=== PATIENT | male | born 1980 | race Caucasian/White ===

== ENCOUNTER 2025-05-08 16:57 | Emergency (ER) | payer OTHER ==
[~2025-05-08] VITALS: Ht 182.9 cm; Wt 83.0 kg
[2025-05-08] MEDS: IV NORMAL SALINE 1000 ML BAG IV ONE (17:12)
[2025-05-08] MEDS ORDERED: ROSU40TA PO (17:18)
[2025-05-08] MEDS ORDERED: ASPI81TA31 PO (17:18)
[2025-05-08 17:23] LABS: PLATELET COUNT (AUTO) 174 K/uL (152-348); RED BLOOD CELL COUNT(AUTO) 5.79 MIL/uL (4.06-5.63); RED CELL DISTRIBUTION WIDTH 13.6 % (12.1-16.2); WHITE BLOOD COUNT (AUTO) 7.0 K/uL (3.6-10.2)
[2025-05-08 17:27] LABS: CREATININE 1.0 mg/dL (0.6-1.3); SODIUM SERUM 142 mmol/L (136-145); UREA NITROGEN, BLOOD 11 mg/dL (7-18)
[2025-05-08 17:33] LABS: ASPARTATE AMINOTRANSFERASE 31 U/L (15-37); TOTAL PROTEIN, SERUM 8.1 g/dL (6.4-8.2)
[2025-05-08] MEDS: IV NS 1000 ML 1,000 ML IV ONE (18:35)
[2025-05-08 19:50] VITALS: BP 128/74; O2SAT 98
== END 2025-05-08 19:51 | disposition home or self-care (01) ==
LOC: ER 17:15
DX: T67.5XXA Heat exhaustion, unspecified, initial encounter (principal); E86.0 Dehydration; E78.00 Pure hypercholesterolemia, unspecified; R55 Syncope and collapse; K58.9 Irritable bowel syndrome, unspecified; Z79.82 Long term (current) use of aspirin; Z79.899 Other long term (current) drug therapy; Z86.79 Personal history of other diseases of the circulatory system; X58.XXXA Exposure to other specified factors, initial encounter; Y93.89 Activity, other specified; Y92.89 Other specified places as the place of occurrence of the external cause; Y99.8 Other external cause status
CPT/HCPCS: 99284; 96360; 96361; 80076; 80048; 85025; 84484 ×2; 36415; 93005; J7040 ×2; A4606; A4663